=== PATIENT | female | born 1975 | race Caucasian/White ===

== ENCOUNTER 2016-10-26 14:19 | Emergency (ER) | payer SELFPAY ==
[2016-10-26] MEDS ORDERED: IBUPROFEN 800 MG TABLET ONE (14:50)
--- NOTE | 2016-10-26 15:27 | RAD ---
HISTORY: Left thumb pain. Patient was moving a heavy table, slipped and bent thumb backward. Patient also complains of elbow pain. Initial encounter. COMPARISON: None TECHNIQUE: Three views of the left hand FINDINGS: Bones: No fracture or dislocation. Joints: Unremarkable. Soft tissue: Normal. IMPRESSION: No fracture or dislocation.
== END 2016-10-26 15:32 | disposition home or self-care (01) ==
LOC: ED 14:19
DX: S63.602A Unspecified sprain of left thumb, initial encounter (principal); F17.210 Nicotine dependence, cigarettes, uncomplicated; X50.0XXA Overexertion from strenuous movement or load, initial encounter; Y93.E9 Activity, other interior property and clothing maintenance; Y92.009 Unspecified place in unspecified non-institutional (private) residence as the place of occurrence of the external cause